=== PATIENT | male | born 1960 | race Caucasian/White ===

== ENCOUNTER 2018-07-11 09:00 | Day surgery (SDC) | payer OTHER ==
[~2018-07-11] VITALS: Ht 160 cm; Wt 88.0 kg
[2018-07-11] MEDS ORDERED: KETOROLAC 30 MG/ML VIAL ONE (11:20)
[2018-07-11] MEDS ORDERED: LIDOCAINE 2% 100 MG/5 ML UJET TP ONE (11:20)
== END 2018-07-11 12:27 | disposition home or self-care (01) ==
LOC: MDS 09:00 → MMU 09:00 → MTU 09:01 → MDS 12:27
PROVIDERS: ATTEND Internal Medicine Gastroenterology
DX: K63.5 Polyp of colon (principal); K57.30 Diverticulosis of large intestine without perforation or abscess without bleeding; K64.8 Other hemorrhoids; E11.9 Type 2 diabetes mellitus without complications; Z98.890 Other specified postprocedural states
CPT/HCPCS: 45385; J1885